=== PATIENT | male | born 1950 | race Caucasian/White ===

== ENCOUNTER → 2024-07-28 07:42 | Outpatient (REF) | payer MEDICARE, OTHER, SELFPAY | LOC: RAD 07:42 | PROVIDERS: ATTENDING PHYSICIAN Surgery Vascular Surgery; FAMILY PHYSICIAN Internal Medicine | DX: I73.9 Peripheral vascular disease, unspecified (principal); I65.21 Occlusion and stenosis of right carotid artery; I77.1 Stricture of artery | CPT/HCPCS: 93880; 93922; 93923; 93925; 93930 ==

== ENCOUNTER → 2024-08-19 06:15 | Day surgery (SDC) | payer MEDICARE, OTHER, SELFPAY ==
[2024-08-19] VITALS (17 sets, daily range): BP systolic 54–185; BP diastolic 12–138; BMI 32.9
[2024-08-19 07:02] LABS: Hematocrit 43.6 % (39.0-52.0); Hemoglobin 14.7 g/dL (13.0-18.0); Mean Corp Hgb Conc. 33.7 g/dL (33.0-37.0); Mean Corpuscular Hgb 30.9 pg (27.0-31.0); Mean Corpuscular Volume 91.8 fL (80.0-94.0); Mean Platelet Volume 10.9 fL (7.4-10.4); Platelet Count 199 10^3/uL (130-400); Red Blood Cell Count 4.75 10^6/uL (4.70-6.10); Red Cell Dist. Width 13.8 % (11.5-14.5); White Blood Cell Count 9.4 10^3/uL (4.8-10.8)
--- NOTE | 2024-08-19 07:04 | W.SUR.PREOP ---
Pre-Operative Surgical Note
-
I have examined this patient prior to the performance of the scheduled procedure.
The patient's condition is unchanged from the time of the current History and
Physical and the patient is able to undergo the scheduled procedure.
[2024-08-19 07:09] LABS: Glucose - Point of Care 180 mg/dl (70-99)
[2024-08-19 07:14] LABS: INR 0.91; PT 12.3 Sec (11.4-14.6)
[2024-08-19 07:15] LABS: APTT 25.8 Sec (23.4-35.0)
[2024-08-19 07:36] LABS: Blood Urea Nitrogen 17 mg/dl (9-20); Calcium 9.1 mg/dl (8.4-10.2); Carbon Dioxide 23 mmol/L (22-30); Chloride 105 mmol/L (98-107); Estimated Creatinine Clearance 90 ml/min; Glucose 204 mg/dl (70-99); Potassium 4.6 mmol/L (3.5-5.1); Sodium 141 mmol/L (135-145); eGFR > 60.00
--- NOTE | 2024-08-19 09:00 | W.SUR.POST ---
Surgical Immediate Post Op
Note
Pre Op Diagnosis: PAD
Post Op Diagnosis: PAD
Procedure Performed: Right lower extremity arteriogram, right SFA angioplasty/stent placement
Primary Surgeon: Chago
Anesthesia: Local sedation
Estimated Blood Loss: Less than 2 cc
Fluids: See anesthesia flowsheet
Drains/Shunts: None
Specimens/Cultures: None
Doppler/Duplex/Angio (Y/N): Y
Complications: None
Operative Findings: Successful stenting
[2024-08-19 09:14] LABS: Glucose - Point of Care 189 mg/dl (70-99)
--- NOTE | 2024-08-19 09:27 | OR.RPT ---
Operative Report
Operative Report
PROCEDURE DATE: 08/19/2024
Preoperative diagnosis: Chronic limb threatening ischemia right lower extremity
Postoperative diagnosis: Same
Procedure:
1. Duplex assisted left common femoral artery cannulation.
2. Aortogram and pelvic angiogram.
3. Right lower extremity arteriogram with third order vessel catheterization of right peroneal artery via left common femoral artery puncture.
4. Primary stent placement and angioplasty right distal superficial femoral artery with Cook Zilver PTX 6 mm x 4 cm self-expanding drug-eluting stent.
5. Primary stent placement and angioplasty right [id number] popliteal artery with Cook Zilver PTX 6 mm x 4 cm self-expanding drug-eluting stent.
6. Left femoral angiogram and attempted Pro-glide percutaneous suture closure.
7. Supervision and interpretation.
Surgeon: Chago
Grease Press Helper: None
Complications: None
Anesthesia: Local, sedation
Fluoroscopy:
9 min
146 mGy
35.23 Gy.cm2
Indications for procedure:
Right toe nonhealing wound. Evidence of peripheral arterial disease on noninvasive imaging. Therefore brought for angiography. Risk/benefits/alternatives all fully discussed. Patient understood all wished to proceed.
Description of procedure:
Patient was identified, brought to the operating room. Placed on the table in the supine position. After the adequate administration of anesthesia, the patient was prepped and draped in the standard surgical fashion. A standard preoperative
timeout was undertaken and everybody was in agreement with the plan.
The left common femoral artery was accessed with a micropuncture kit under direct duplex ultrasound guidance. A 5 Wolof sheath was then advanced over a 0.035 inch wire, and a parker's hook catheter was advanced into the abdominal aorta.
Aortogram and pelvic angiogram was obtained. Findings as follows:
Infrarenal aorta: Distal infrarenal aorta patent with no significant stenosis. Rather large EDWIN noted.
Right common iliac artery: Patent with no significant stenosis.
Right external iliac artery: Patent with no significant stenosis.
Left common iliac artery: Patent with no significant stenosis. But limited somewhat evaluation due to overlying hardware.
Left external iliac artery: Patent with no significant stenosis.
Using a floppy angled hydrophilic wire, the right common femoral artery was cannulated and the catheter was advanced. Right lower extremity arteriogram was obtained. Findings as follows:
Common femoral artery: Patent with no significant stenosis.
Profunda femoris artery: Patent with no significant stenosis.
Superficial femoral artery: Patent with mild luminal irregularities in the more distal segment and then severe stenosis at the very distal SFA near the transition to the popliteal artery.
Popliteal artery: Patent with moderate to severe stenosis in the mid above-knee popliteal artery segment. Otherwise patent behind and below knee segments with no significant stenosis.
Anterior tibial artery: Chronically occluded. On late filling possible reconstituted small DP on the foot.
Tibial peroneal trunk: Patent with no significant stenosis.
Peroneal artery: Patent with no significant stenosis, but distal Y collateralization relatively weak.
Posterior tibial artery: Patent with no significant stenosis. Dominant runoff vessel to the foot. Feels plantar arteries proximally, but one of the 2 plantars somewhat disease with possible stenosis.
At this point I selectively cannulated the superficial femoral artery and then exchanged for an up and over 6 Wolof sheath over a Storq wire. The patient was given 8000's of intravenous heparin. Next under roadmap assisted guidance I traverse the
area of SFA and popliteal stenosis with a flopping of hydrophilic wire and a CXI catheter. I advanced a wire into the peroneal artery and then exchanged for a Storq wire. I then primarily stented the SFA and popliteal stenoses with a Cook 6 mm x 4
cm Zilver PTX stents. These were post angioplasty with 5 mm balloons. Completion angiogram demonstrated excellent result with no residual stenosis and stable flow through the runoff. At this point I withdrew my sheath to the left external iliac
artery. Left femoral angiogram demonstrated good puncture in the left common femoral artery. Slightly more distal angiography in the left thigh demonstrated a severe SFA stenosis. There was a patent [id number] popliteal artery stent. But
just distal to here there was another moderate stenosis, followed in tandem by a severe stenosis behind the knee. At this point, I elected to attempt Pro-glide percutaneous closure given good puncture in the left common femoral artery and very
reasonable artery characteristics. Pro-glide was deployed in the standard fashion. However, the not did not appear to cinch down all the way to the artery and there is still bleeding and therefore manual pressure was applied in the standard
fashion. Protamine was given to reverse the heparin. Hemostasis was fully achieved. The patient tolerated procedure well. He had a palpable right posterior tibial pulse upon completion.
The patient tolerated procedure well.
[2024-08-19] MEDS: LOW STRENGTH ASPIRIN 81 MG PO (13:38)
== END | disposition home or self-care (01) ==
LOC: CATH 06:15
PROVIDERS: ATTENDING PHYSICIAN Surgery Vascular Surgery; FAMILY PHYSICIAN Internal Medicine; OTHER PHYSICIAN Nuclear Medicine Nuclear Cardiology
DX: I70.235 Atherosclerosis of native arteries of right leg with ulceration of other part of foot (principal); L97.519 Non-pressure chronic ulcer of other part of right foot with unspecified severity; Z87.891 Personal history of nicotine dependence; Z79.01 Long term (current) use of anticoagulants; Z79.84 Long term (current) use of oral hypoglycemic drugs; Z79.85 Long-term (current) use of injectable non-insulin antidiabetic drugs; Z79.4 Long term (current) use of insulin; Z79.890 Hormone replacement therapy; Z79.899 Other long term (current) drug therapy; Z95.5 Presence of coronary angioplasty implant and graft; Z95.820 Peripheral vascular angioplasty status with implants and grafts; Z86.010 Personal history of colon polyps; Z95.1 Presence of aortocoronary bypass graft; I25.10 Atherosclerotic heart disease of native coronary artery without angina pectoris
CPT/HCPCS: 37226; 75625; 75716; 80048; 82962; 85027; 85610; 85730; 86850; 86900; 86901; 93005; C1725; C1760; C1769; C1874; C1887; C1894; Q9967

== ENCOUNTER → 2024-09-22 14:18 | Outpatient (REF) | payer MEDICARE, OTHER, SELFPAY | LOC: RAD 14:18 | PROVIDERS: ATTENDING PHYSICIAN Surgery Vascular Surgery; FAMILY PHYSICIAN Internal Medicine | DX: I73.9 Peripheral vascular disease, unspecified (principal) | CPT/HCPCS: 93922; 93925 ==

== ENCOUNTER → 2025-04-11 07:08 | Outpatient (REF) | payer MEDICARE, OTHER, SELFPAY | LOC: DHVS 07:08 | PROVIDERS: ATTENDING PHYSICIAN Registered Nurse; FAMILY PHYSICIAN Internal Medicine; OTHER PHYSICIAN Surgery Vascular Surgery | DX: I73.9 Peripheral vascular disease, unspecified (principal) | CPT/HCPCS: 93922; 93925 ==

== ENCOUNTER 2025-05-04 08:23 | Day surgery (SDC) | payer MEDICARE, OTHER, SELFPAY ==
[2025-05-03 18:19] VITALS: BMI 30.7
[2025-05-04] VITALS (20 sets, daily range): BP systolic 106–189; BP diastolic 45–153; BMI 30.1
[2025-05-04] MEDS: NSS 500 IV (08:48)
[2025-05-04 08:53] LABS: Hematocrit 41.3 % (39.0-52.0); Hemoglobin 13.4 g/dL (13.0-18.0); Mean Corp Hgb Conc. 32.4 g/dL (33.0-37.0); Mean Corpuscular Hgb 30.7 pg (27.0-31.0); Mean Corpuscular Volume 94.7 fL (80.0-94.0); Mean Platelet Volume 11.5 fL (7.4-10.4); Platelet Count 192 10^3/uL (130-400); Red Blood Cell Count 4.36 10^6/uL (4.70-6.10); Red Cell Dist. Width 13.2 % (11.5-14.5); White Blood Cell Count 11.1 10^3/uL (4.8-10.8)
[2025-05-04 09:03] LABS: INR 0.95; PT 13.2 Sec (11.4-14.6)
[2025-05-04 09:04] LABS: APTT 25.8 Sec (23.4-35.0)
[2025-05-04 09:10] LABS: Blood Urea Nitrogen 19 mg/dl (9-20); Calcium 9.6 mg/dl (8.4-10.2); Carbon Dioxide 26 mmol/L (22-30); Chloride 107 mmol/L (98-107); Estimated Creatinine Clearance 72 ml/min; Glucose 162 mg/dl (70-99); Potassium 4.5 mmol/L (3.5-5.1); Sodium 142 mmol/L (135-145); eGFR > 60.00
--- NOTE | 2025-05-04 10:50 | W.SUR.POST ---
Surgical Immediate Post Op
Note
Pre Op Diagnosis: PAD
Post Op Diagnosis: PAD
Procedure Performed: RLE arteriogram, balloon angioplasty TP trunk, balloon angioplasty and stent placement to popliteal artery
Primary Surgeon: Chago
Anesthesia: local and sedation
Estimated Blood Loss: <2cc
Fluids: See anesthesia flow sheet
Drains/Shunts: none
Specimens/Cultures: None
Doppler/Duplex/Angio (Y/N): Y
Complications: none
Operative Findings: successful stent placement
--- NOTE | 2025-05-04 11:06 | OR.RPT ---
Operative Report
Operative Report
PROCEDURE DATE: 05/04/2025
Preoperative diagnosis: Chronic limb threatening ischemia right lower extremity.
Postoperative diagnosis: Same
Procedure:
1. Duplex assisted left common femoral artery cannulation.
2. Aortogram and pelvic angiogram.
3. Right lower extremity arteriogram with third order vessel catheterization of right peroneal artery via left common femoral artery puncture.
4. Balloon angioplasty with drug-coated balloon (Bard Lutonix) 5 mm x 4 cm right lower extremity behind the popliteal artery de-damian stenosis, and above-knee popliteal artery in-stent restenosis.
5. Placement of self-expanding stent Cook Zilver PTX 6 mm x 4 cm right lower extremity behind the knee popliteal artery refractory stenosis.
6. Balloon angioplasty of right lower extremity tibioperoneal trunk with 3 mm angioplasty balloon.
7. Left femoral angiogram and attempted Pro-glide percutaneous suture closure.
8. Supervision and interpretation.
Surgeon: Chago
Mud Tank Operator: None
Complications: None
Anesthesia: Local, sedation
Fluoroscopy:
10.3 min
245 mGy
61.43 gy.cm2
Indications for procedure:
Critical limb ischemia right lower extremity with popliteal artery and potentially distal SFA stenosis noted on ultrasound. Prior history of right-sided stents x 2. Now has wounds right foot. Risk/benefits/alternatives of angiography were fully
discussed. Patient understood and wished to proceed.
Description of procedure:
Patient was identified, brought to the operating room. Placed on the table in the supine position. After the adequate administration of anesthesia, the patient was prepped and draped in the standard surgical fashion. A standard preoperative
timeout was undertaken and everybody was in agreement with the plan.
The left common femoral artery was accessed with a micropuncture kit under direct duplex ultrasound guidance. A 5 [place] sheath was then advanced over a 0.035 inch wire, and a parker's hook catheter was advanced into the abdominal aorta.
Aortogram and pelvic angiogram was obtained. Findings as follows:
Infrarenal aorta and bilateral common and external iliac arteries were patent with no obvious stenoses. Eccentric calcified plaque noted throughout the distal infrarenal abdominal aorta and bilateral common iliac arteries but again no stenosis.
Slightly challenging imaging of the right iliac system due to the overlying hardware.
Using a floppy angled hydrophilic wire, the right common femoral artery was cannulated and the catheter was advanced. Right lower extremity arteriogram was obtained. Findings as follows:
Common femoral artery: Patent with no significant stenosis.
Profunda femoris artery: Patent with no significant stenosis
Superficial femoral artery: Patent with no significant stenosis. Distal SFA stent patent without any significant in-stent restenosis.
Popliteal artery: Patent with mild to moderate in-stent restenosis in stent though is patent. Beyond the stent in the behind the knee popliteal artery segment, there was a severe focal stenosis with moderate plaque, but not fully calcified.
Anterior tibial artery: Chronically occluded.
Tibial peroneal trunk: Patent with severe stenosis at the origin.
Peroneal artery: Patent, somewhat diminutive in size, gave collaterals at the ankle 1 of which may have reconstituted the diseased dorsalis pedis artery.
Posterior tibial artery: Patent with no significant stenosis, dominant runoff vessel to the foot.
At this point I selectively cannulated the superficial femoral artery and then exchanged over Storq wire for 6 [place] up and over sheath. The patient was given 8000 intravenous heparin. I was able to pass my Storq wire through the popliteal artery
and then directly into the peroneal artery. Now I performed angioplasty with a drug-coated balloon (Bard Lutonix) of the behind knee popliteal artery stenosis that was severe. I used a 5 mm x 4 cm balloon. Prolonged 2-minute inflation undertaken.
Completion angiogram demonstrated improvement in the hourglass like stenosis, but there was still significant opacities suggesting residual plaque stenosis and/or plaque shifting. I then ballooned with the same 5 mm balloon in the in-stent
restenosis in the above-knee popliteal artery stent given at least moderate stenosis now noted. Completion angiogram demonstrated good resolution of that stenosis. At this point I exchanged for a 0.014 inch wire in the peroneal artery and then
performed balloon angioplasty of the TP trunk stenosis. Completion angiogram demonstrated good result with mild dissection but not flow-limiting. But good resolution of the stenosis. At this point I exchanged back for a 0.035 inch wire and felt
that I should further treat the popliteal behind the knee lesion. Therefore I then placed a Cook Zilver PTX 6 mm x 6 cm stent that overlapped into the above-knee popliteal artery stent. Post angioplasty with 5 mm balloon. Completion angiogram now
demonstrated excellent result. At this point is very satisfied. Preserved brisk flow into the runoff. Sheath was withdrawn to the left distal external iliac artery. Left femoral angiogram demonstrated good puncture in the left common femoral
artery. A Pro-glide percutaneous suture closure device was attempted to use. The knot could not slide down well to the artery,. It may have but I could not tell for sure. I tried with the knot pusher. Regardless there is still some bleeding
though not tomeka pulsatile and no hematomas developing. Therefore regardless the suture strand was cut and manual pressure was applied prolonged regardless. Protamine was given to reverse the heparin. Hemostasis was fully achieved. The patient
tolerated procedure well. Upon completion he had a palpable right posterior tibial artery pulse. Patient was taken to recovery room in stable condition.
[2025-05-04 11:33] LABS: Glucose - Point of Care 142 mg/dl (70-99)
[2025-05-04] MEDS: NSS 1000 IV (12:20)
== END 2025-05-04 17:10 | disposition home or self-care (01) ==
LOC: CATH 08:23
PROVIDERS: ATTENDING PHYSICIAN Surgery Vascular Surgery; OTHER PHYSICIAN Internal Medicine Cardiovascular Disease; PRIMARYCARE PHYSICIAN Internal Medicine
DX: T82.856A Stenosis of peripheral vascular stent, initial encounter (principal); Y83.8 Other surgical procedures as the cause of abnormal reaction of the patient, or of later complication, without mention of misadventure at the time of the procedure; E11.51 Type 2 diabetes mellitus with diabetic peripheral angiopathy without gangrene; L97.519 Non-pressure chronic ulcer of other part of right foot with unspecified severity; I70.235 Atherosclerosis of native arteries of right leg with ulceration of other part of foot; Z79.4 Long term (current) use of insulin; Z79.84 Long term (current) use of oral hypoglycemic drugs; Z79.899 Other long term (current) drug therapy; Z79.890 Hormone replacement therapy; Z88.0 Allergy status to penicillin; Z88.5 Allergy status to narcotic agent; Z88.8 Allergy status to other drugs, medicaments and biological substances
CPT/HCPCS: 37226; 37228; 75625; 75716; 80048; 82962; 85027; 85610; 85730; 86850; 86900; 86901; C1725; C1760; C1769; C1874; C1887; C1894; C2623; Q9967

== ENCOUNTER → 2025-06-10 07:35 | Outpatient (REF) | payer MEDICARE, OTHER, SELFPAY | LOC: RAD 07:35 | PROVIDERS: ATTENDING PHYSICIAN Surgery Vascular Surgery; FAMILY PHYSICIAN Internal Medicine | DX: I73.9 Peripheral vascular disease, unspecified (principal) | CPT/HCPCS: 93922; 93925 ==